=== PATIENT | male | born 1960 | race Caucasian/White ===

== ENCOUNTER 2016-10-16 16:38 | Emergency (ER) | payer MEDICAID, OTHER ==
[~2016-10-16] VITALS: Ht 177.8 cm; Wt 95.3 kg
[2016-10-16 16:52] VITALS: BP 177/113
[2016-10-16] MEDS ORDERED: KETOROLAC TROMETH 60MG/2ML VIAL IM ONE (17:30)
== END 2016-10-16 18:15 | disposition home or self-care (01) ==
LOC: ER 16:42
DX: S01.01XA Laceration without foreign body of scalp, initial encounter (principal); F17.210 Nicotine dependence, cigarettes, uncomplicated; W18.39XA Other fall on same level, initial encounter; Y93.89 Activity, other specified; Y92.89 Other specified places as the place of occurrence of the external cause; Y99.8 Other external cause status
CPT/HCPCS: 12004; 70450; 96372; 99284; J1885

== ENCOUNTER 2018-04-09 01:38 | Emergency (ER) | payer MEDICAID ==
[~2018-04-09] VITALS: Ht 180.3 cm; Wt 108.9 kg
[2018-04-09] MEDS ORDERED: VANCOMYCIN 1GM/250ML 250 ML IV ONE (05:30)
[2018-04-09 07:54] LABS: Basophils # (auto) 0 uL; Basophils % (auto) 0.4 % (0.0-2.0); Eosinophils # (auto) 0.3 uL; Eosinophils % (auto) 3.1 % (0.0-7.0); Hematocrit 40.7 % (41.0-53.0); Hemoglobin 13.9 g/dL (13.5-17.5); Lymphocytes # (auto) 2.3 uL; Lymphocytes % (auto) 28.2 % (10.0-50.0); Mean Corpuscular Hemoglobin 32.3 pg (28.0-32.0); Mean Corpuscular Hgb Conc. 34.2 g/dL (32.0-36.0); Mean Corpuscular Volume 94.2 fL (80.0-100.0); Monocytes # (auto) 0.7 uL; Monocytes % (auto) 9.2 % (0.0-12.0); Neutrophils # (auto) 4.8 uL; Neutrophils % (auto) 59.1 % (37.0-80.0); Platelet Count (auto) 212 10^3/uL (140-450); Red Blood Cells 4.31 10^6/uL (4.5-5.90); White Blood Cell 8.1 10^3/uL (4.4-10.8)
[2018-04-09 08:11] LABS: Alanine Aminotransferase 34 U/L (16-61); Albumin 3.2 g/dL (3.4-5.0); Anion Gap 7 (5-15); Aspartate Aminotransferase 16 U/L (15-37); BUN/Creatinine Ratio 21.3; Blood Urea Nitrogen 17 mg/dL (7-18); Calcium 7.5 mg/dL (8.5-10.1); Carbon Dioxide 24 mmol/L (21-32); Chloride 108 mmol/L (98-107); GFR African American > 60 mL/min; GFR Non-African American > 60 mL/min; Glucose 112 mg/dL (74-106); Potassium 3.6 mmol/L (3.5-5.1); Sodium 139 mmol/L (136-145)
[2018-04-09 08:14] LABS: Alkaline Phosphatase 104 U/L (45-117); Bilirubin, Total 0.3 mg/dL (0.2-1.0); Total Protein 7.1 g/dL (6.4-8.2)
[2018-04-09 08:16] LABS: INR 0.96 (0.9-1.15); Partial Thromboplastin Time 26.4 sec (23.78-33.04); Prothrombin Time 10.3 sec (9.27-12.13)
[2018-04-09 08:22] LABS: Urine WBC None Seen /hpf (0 - 3)
[2018-04-09 08:53] LABS: Urine Bacteria NONE SEEN /hpf (None Seen); Urine Blood Negative /uL (Negative); Urine Specific Gravity 1.014 (1.001-1.035)
[2018-04-09 08:55] LABS: Alcohol, Urine < 3.0 mg/dL (0-5); Amphetamine Screen, Urine POSITIVE (NEGATIVE); Barbiturate Scree,Urine NEGATIVE (NEGATIVE); Benzodiazephine Screen, Urine NEGATIVE (NEGATIVE); Cannabinoid Screen, Urine NEGATIVE (NEGATIVE); Cocaine Screen, Urine NEGATIVE (NEGATIVE); Opiate Scree,Urine NEGATIVE (NEGATIVE); Phencyclidine Screen, Urine NEGATIVE (NEGATIVE)
[2018-04-09 09:48] VITALS: BP 164/98
== END 2018-04-09 09:51 | disposition home or self-care (01) ==
LOC: ER 01:38
DX: S80.12XA Contusion of left lower leg, initial encounter (principal); L03.116 Cellulitis of left lower limb; I10 Essential (primary) hypertension; F15.10 Other stimulant abuse, uncomplicated; E46 Unspecified protein-calorie malnutrition; F12.10 Cannabis abuse, uncomplicated; F17.200 Nicotine dependence, unspecified, uncomplicated; V19.9XXA Pedal cyclist (driver) (passenger) injured in unspecified traffic accident, initial encounter; Y93.89 Activity, other specified; Y99.8 Other external cause status; Y92.89 Other specified places as the place of occurrence of the external cause
CPT/HCPCS: 36415; 73562; 73590; 73610; 80053; 80307; 81001; 85025; 85610; 85730; 93971; 96365; 99284; J3370

== ENCOUNTER 2020-05-21 19:48 | Inpatient (IN) | payer MEDICAID ==
[~2020-05-21] VITALS: Ht 180.3 cm; Wt 134.0 kg
[2020-05-21] MEDS ORDERED: SODIUM CHLORIDE 0.9% 500 ML IV ONE (22:30)
[2020-05-21] MEDS ORDERED: PIPERACILLIN-TAZOB 3.375GM 100 ML IV ONE (22:30)
[2020-05-21] MEDS ORDERED: DexAMETHasone SOD PHOS 10MG/1ML VIAL INJ IV ONE (22:30)
[2020-05-21 22:45] LABS: Basophils # (auto) 0 10 ^3/uL (0-0.2); Basophils % (auto) 0.4 % (0.0-2.0); Eosinophils # (auto) 0.2 10 ^3/uL (0-0.8); Eosinophils % (auto) 2.4 % (0.0-7.0); Hematocrit 41.2 % (41.0-53.0); Hemoglobin 14.3 g/dL (13.5-17.5); Lymphocytes # (auto) 2.9 10 ^3/uL (0.4-5.4); Lymphocytes % (auto) 28.8 % (10.0-50.0); Mean Corpuscular Hemoglobin 32.4 pg (28.0-32.0); Mean Corpuscular Hgb Conc. 34.7 g/dL (32.0-36.0); Mean Corpuscular Volume 93.4 fL (80.0-100.0); Monocytes % (auto) 9.6 % (0.0-12.0); Neutrophils # (auto) 5.9 10 ^3/uL (1.6-8.6); Neutrophils % (auto) 58.8 % (37.0-80.0); Nucleated Red Blood Cells % 0.1 %; Platelet Count (auto) 223 10^3/uL (140-450); Red Cell Distribution Width 13.3 % (11.8-14.3)
[2020-05-22 00:05] LABS: Alanine Aminotransferase 56 U/L (16-61); Albumin 3.3 g/dL (3.4-5.0); Alkaline Phosphatase 86 U/L (45-117); Anion Gap 3 (5-15); Aspartate Aminotransferase 24 U/L (15-37); BUN/Creatinine Ratio 14.8; Bilirubin, Total 0.2 mg/dL (0.2-1.0); Blood Urea Nitrogen 19 mg/dL (7-18); Carbon Dioxide 29 mmol/L (21-32); Chloride 108 mmol/L (98-107); GFR African American 74 mL/min; GFR Non-African American 62 mL/min; Glucose 94 mg/dL (74-106); Potassium 4.1 mmol/L (3.5-5.1); Sodium 140 mmol/L (136-145)
[2020-05-22 01:26] LABS: INR 0.93 (0.9-1.15); Partial Thromboplastin Time 25.3 sec (23.0-31.2)
[2020-05-22] MEDS ORDERED: IOPAMIDOL 76 % (ISOVUE-370) 100ML BTL IV ONE (01:40)
[2020-05-22] MEDS ORDERED: ONDANSETRON HCL 4 MG/2 ML VIAL IV ONE (01:45)
[2020-05-22] MEDS ORDERED: MORPHINE SULFATE 4 MG/ML SYR/VIAL IV ONE (01:45)
[2020-05-22] MEDS ORDERED: NICOTINE 21MG/24 HR TOPICAL PATCH TD ONE (04:45)
[2020-05-22] MEDS ORDERED: SODIUM CHLORIDE 0.9% 1,000 ML IV ONE (05:30)
[2020-05-22] MEDS ORDERED: HYDROcodone-ACET 5/325MG TAB PO PRN (05:30)
[2020-05-22] MEDS ORDERED: ONDANSETRON HCL 4 MG/2 ML VIAL IV PRN (05:30)
[2020-05-22] MEDS ORDERED: MORPHINE SULF INJ 2 MG/ML SYRINGE 1ML IV PRN (05:30)
[2020-05-22] MEDS ORDERED: NITROGLYCERIN 0.4 MG SL TAB SL PRN (05:30)
[2020-05-22] MEDS: CLINDAMYCIN 900MG IV 50 ML IV SCH ×3 (06:02→22:19)
[2020-05-22 06:50] LABS: Basophils # (auto) 0 10 ^3/uL (0-0.2); Basophils % (auto) 0.2 % (0.0-2.0); Eosinophils # (auto) 0 10 ^3/uL (0-0.8); Eosinophils % (auto) 0.1 % (0.0-7.0); Hematocrit 41.2 % (41.0-53.0); Hemoglobin 14.1 g/dL (13.5-17.5); Lymphocytes # (auto) 0.9 10 ^3/uL (0.4-5.4); Lymphocytes % (auto) 11.7 % (10.0-50.0); Mean Corpuscular Hemoglobin 32.3 pg (28.0-32.0); Mean Corpuscular Hgb Conc. 34.2 g/dL (32.0-36.0); Mean Corpuscular Volume 94.4 fL (80.0-100.0); Monocytes # (auto) 0.1 10 ^3/uL (0-1.3); Monocytes % (auto) 1.2 % (0.0-12.0); Neutrophils # (auto) 6.7 10 ^3/uL (1.6-8.6); Neutrophils % (auto) 86.8 % (37.0-80.0); Nucleated Red Blood Cells % 0.1 %; Platelet Count (auto) 214 10^3/uL (140-450); Red Blood Cells 4.36 10^6/uL (4.5-5.90); Red Cell Distribution Width 13.3 % (11.8-14.3); White Blood Cell 7.7 10^3/uL (4.4-10.8)
[2020-05-22 07:05] LABS: Albumin 3.1 g/dL (3.4-5.0); BUN/Creatinine Ratio 11.8; Calcium 7.9 mg/dL (8.5-10.1); Potassium 4.9 mmol/L (3.5-5.1)
[2020-05-22 07:08] LABS: Bilirubin, Total 0.3 mg/dL (0.2-1.0); Total Protein 7.5 g/dL (6.4-8.2)
[2020-05-22] MEDS: HEPARIN SODIUM (PORCINE) 5000 UNITS/ML 1ML VIAL SC SCH ×2 (10:08→22:24)
[2020-05-22] MEDS: FUROSEMIDE 40 MG/4 ML VIAL IV SCH (10:15)
[2020-05-22] MEDS ORDERED: hydrALAZINE HCL 20 MG/ML VL IV PRN (10:15)
[2020-05-22] MEDS ORDERED: ALBUTEROL SULF 2.5 MG/0.5ML(0.5%) NEB SOLN NEB PRN (11:00)
[2020-05-22] MEDS ORDERED: IPRATROPIUM BROM 0.5 MG/2.5ML INH SOL NEB PRN (11:00)
[2020-05-22 12:00] VITALS: BP 143/83
[2020-05-22] MEDS: amLODIPine BESYLATE 5 MG TAB PO SCH (14:31)
[2020-05-22 17:00] VITALS: BP 142/74
[2020-05-22 22:00] VITALS: BP 160/88
[2020-05-23] VITALS: BP 146/70
[2020-05-23] MEDS: CLINDAMYCIN 900MG IV 50 ML IV SCH ×3 (05:06→22:03)
[2020-05-23 05:30] VITALS: BP 139/78
[2020-05-23 06:38] LABS: Basophils # (auto) 0 10 ^3/uL (0-0.2); Basophils % (auto) 0.3 % (0.0-2.0); Eosinophils # (auto) 0.1 10 ^3/uL (0-0.8); Eosinophils % (auto) 0.6 % (0.0-7.0); Hemoglobin 14.1 g/dL (13.5-17.5); Lymphocytes # (auto) 2.7 10 ^3/uL (0.4-5.4); Lymphocytes % (auto) 23.2 % (10.0-50.0); Mean Corpuscular Hemoglobin 32.2 pg (28.0-32.0); Mean Corpuscular Hgb Conc. 33.6 g/dL (32.0-36.0); Mean Corpuscular Volume 95.7 fL (80.0-100.0); Monocytes # (auto) 1.2 10 ^3/uL (0-1.3); Monocytes % (auto) 10.2 % (0.0-12.0); Neutrophils # (auto) 7.5 10 ^3/uL (1.6-8.6); Neutrophils % (auto) 65.7 % (37.0-80.0); Nucleated Red Blood Cells % 0.1 %; Platelet Count (auto) 217 10^3/uL (140-450); Red Blood Cells 4.39 10^6/uL (4.5-5.90); White Blood Cell 11.5 10^3/uL (4.4-10.8)
[2020-05-23 07:07] LABS: BUN/Creatinine Ratio 21.4; Magnesium 2.3 mg/dL (1.6-2.6); Potassium 4.1 mmol/L (3.5-5.1)
[2020-05-23] MEDS: FUROSEMIDE 40 MG/4 ML VIAL IV SCH (08:48)
[2020-05-23] MEDS: amLODIPine BESYLATE 5 MG TAB PO SCH (08:49)
[2020-05-23] MEDS: HEPARIN SODIUM (PORCINE) 5000 UNITS/ML 1ML VIAL SC SCH ×2 (08:50→22:03)
[2020-05-23 09:00] VITALS: BP 162/99
[2020-05-23] MEDS ORDERED: amLODIPine BESYLATE 5 MG TAB PO SCH (10:00)
[2020-05-23 12:40] VITALS: BP 105/68
[2020-05-23 16:14] VITALS: BP 148/80
[2020-05-23 21:00] VITALS: BP 116/72
[2020-05-23] MEDS ORDERED: HEPARIN SODIUM (PORCINE) 5000 UNITS/ML 1ML VIAL ONE (21:44)
[2020-05-24] MEDS: CLINDAMYCIN 900MG IV 50 ML IV SCH (05:16)
[2020-05-24 05:47] VITALS: BP 133/75
[2020-05-24 08:42] VITALS: BP 107/76
[2020-05-24] MEDS: FUROSEMIDE 40 MG/4 ML VIAL IV SCH (10:09)
[2020-05-24] MEDS: amLODIPine BESYLATE 5 MG TAB PO SCH (10:10)
[2020-05-24] MEDS: HEPARIN SODIUM (PORCINE) 5000 UNITS/ML 1ML VIAL SC SCH (10:11)
[2020-05-24 12:20] VITALS: BP 107/76
[2020-05-24] MEDS ORDERED: SIMV-8 PO (12:50)
[2020-05-24] MEDS ORDERED: BENA20TA14 PO (12:50)
[2020-05-24] MEDS ORDERED: AML5T PO (12:50)
[2020-05-24] MEDS ORDERED: CAR125T PO (12:50)
[2020-05-24] MEDS ORDERED: ALBUAER3 IN (12:50)
[2020-05-24 12:51] VITALS: BP 136/79
== END 2020-05-24 13:00 | disposition home or self-care (01) | DRG 383 ==
LOC: ER 19:48 → OVERFLOW 19:49 → CENTRAL 05-22 17:37
PROVIDERS: ADMIT Hospitalist; ATTEND Hospitalist
PROC: 5A09357 Assistance with Respiratory Ventilation, Less than 24 Consecutive Hours, Continuous Positive Airway Pressure (ICD-10-PCS; principal; 2020-05-22)
PROC: 5A09357 Assistance with Respiratory Ventilation, Less than 24 Consecutive Hours, Continuous Positive Airway Pressure (ICD-10-PCS; 2020-05-23)
DX: L03.115 Cellulitis of right lower limb (principal); J96.10 Chronic respiratory failure, unspecified whether with hypoxia or hypercapnia; L03.116 Cellulitis of left lower limb; N17.9 Acute kidney failure, unspecified; J20.9 Acute bronchitis, unspecified; J44.0 Chronic obstructive pulmonary disease with (acute) lower respiratory infection; I10 Essential (primary) hypertension; E88.09 Other disorders of plasma-protein metabolism, not elsewhere classified; E66.01 Morbid (severe) obesity due to excess calories; F17.210 Nicotine dependence, cigarettes, uncomplicated; Z20.822 Contact with and (suspected) exposure to COVID-19; F15.90 Other stimulant use, unspecified, uncomplicated; R73.9 Hyperglycemia, unspecified; L02.415 Cutaneous abscess of right lower limb; A49.02 Methicillin resistant Staphylococcus aureus infection, unspecified site; Z71.6 Tobacco abuse counseling; Z86.14 Personal history of Methicillin resistant Staphylococcus aureus infection; Z68.34 Body mass index [BMI] 34.0-34.9, adult; Z71.3 Dietary counseling and surveillance
CPT/HCPCS: 36415; 71045; 71275; 73700; 80048; 80053; 83036; 83605; 83735; 83880; 84484; 85025; 85379; 85610; 85730; 86141; 87040; 87077; 87186; 87205; 87426; 93005; 93970; 94640; 94660; 96361; 96365; 96375; G0378; J1100; J2405; J2543; J3490

== ENCOUNTER 2021-12-08 16:03 | Emergency (ER) | payer MEDICAID ==
[~2021-12-08] VITALS: Ht 177.8 cm; Wt 109.0 kg
[~2021-12-08 16:03] MED LIST: ALBUAER3 IN; AML5T PO; BENA20TA14 PO; CAR125T PO; SIMV-8 PO
[2021-12-08 18:58] LABS: Basophils # (auto) 0 10 ^3/uL (0-0.2); Basophils % (auto) 0.3 % (0.0-2.0); Eosinophils # (auto) 0.1 10 ^3/uL (0-0.8); Eosinophils % (auto) 0.9 % (0.0-7.0); Hematocrit 34.6 % (41.0-53.0); Hemoglobin 11.6 g/dL (13.5-17.5); Lymphocytes % (auto) 45.1 % (10.0-50.0); Mean Corpuscular Hemoglobin 30.5 pg (28.0-32.0); Mean Corpuscular Hgb Conc. 33.5 g/dL (32.0-36.0); Monocytes # (auto) 0.8 10 ^3/uL (0-1.3); Monocytes % (auto) 8.9 % (0.0-12.0); Neutrophils % (auto) 44.8 % (37.0-80.0); Red Cell Distribution Width 13.5 % (11.8-14.3)
[2021-12-08 19:02] LABS: Albumin 2.7 g/dL (3.4-5.0); Calcium 7.9 mg/dL (8.5-10.1); Potassium 3.4 mmol/L (3.5-5.1)
[2021-12-08 19:07] LABS: BUN/Creatinine Ratio 10.8; Bilirubin, Total 0.3 mg/dL (0.2-1.0); Total Protein 8.6 g/dL (6.4-8.2)
[2021-12-08] MEDS ORDERED: CLINDAMYCIN 900MG IV 50 ML IV ONE (20:00)
[2021-12-08] MEDS ORDERED: CLIN-203 PO (20:03)
[2021-12-09] MEDS ORDERED: ACETAMINOPHEN 500 MG TAB PO ONE (00:45)
[2021-12-09 02:21] VITALS: BP 158/92
== END 2021-12-09 02:29 | disposition home or self-care (01) ==
LOC: ER 16:03
DX: L03.116 Cellulitis of left lower limb (principal); L03.115 Cellulitis of right lower limb; I10 Essential (primary) hypertension; F12.10 Cannabis abuse, uncomplicated
CPT/HCPCS: 36415; 80053; 83605; 83880; 85025; 85652; 86141; 87040; 93970; 96365; 96366; 99284; J3490